=== PATIENT | female | born 1970 | race Caucasian/White ===

== ENCOUNTER 2017-02-03 15:05 | Emergency (ER) | payer BC ==
[~2017-02-03] VITALS: Ht 175.3 cm; Wt 55.8 kg
[~2017-02-03 15:05] MED LIST: ALPR0.5T PO; ASCO1TAB5 PO; CETI10TA22 PO; CHOL100013 PO; DIPH25CA58 PO; FLUT9.9S NS; HYDR-2758 PO; MELO15TA23 PO; OMEP20CA9 PO; ONDA4TAB7 PO; PHEN60TA PO; PROAIR HFA8.5 GM INH; PROM25TA10 PO; SERT100T PO; SERT50TA PO; SOFO400T PO; [UNRECOGNIZED DRUG - CODE] PO
[2017-02-03 15:17] VITALS: BP 113/63
[2017-02-03] MEDS ORDERED: BUTALB/APAP/CAFEIN 50/325/40MG TABLET. PO STA (15:32)
[2017-02-03] MEDS ORDERED: IV NORMAL SALINE 1000ML BAG 1,000 ML IV SCH (15:32)
--- NOTE | 2017-02-03 15:40 | PHYS DOC ---
Past Medical History Past Medical History: Other Additional Past Medical Histor: back pain, herniated discs, floating bones, degenerative bone disease, Past Surgical History: Other Additional Past Surgical Histo: adnoids, breast augmentation, hematoma removal Alcohol Use: None Drug Use: None Adult General Chief Complaint Chief Complaint: HEADACHE HPI HPI Patient is a 46 year old female who presents with complaint of headache. The patient states that she had a myelogram done 2 days ago for evaluation of her cervical radiculopathy. Patient states shortly after the procedure she started to have what felt like a migraine headache. She was told to rest and hydrate at home and was told that the headache would likely pass on its own. Patient states however that her symptoms have worsened. The patient states that she has worsening symptoms when she tries to stand or perform normal activities such as walking. Patient denies any fevers. Patient rates her headache currently is 10 out of 10. Patient states that laying down and attempting to sleep seems to take the edge off of her headache at this time. Due to persistent symptoms the patient came to the emergency department for evaluation. Patient does note that she has sensitivity light currently and nausea with her symptoms. Review of Systems Review of Systems Constitutional: Denies fever or chills [] Eyes: Photophobia, denies change in visual acuity, redness, or eye pain [] HENT: Denies nasal congestion or sore throat [] Respiratory: Denies cough or shortness of breath [] Cardiovascular: Denies chest pain or edema[] GI: Nausea, denies abdominal pain, vomiting, bloody stools or diarrhea [] : Denies dysuria or hematuria [] Musculoskeletal: Denies back pain or joint pain [] Integument: Denies rash or skin lesions [] Neurologic: Headache, denies focal weakness or sensory changes [] Current Medications Current Medications Current Medications Medications (Trade) Dose Ordered Sig/Jojo Start Time Stop Time Status Last Admin Dose Admin Acetaminophen/ Butalbital/ Caffeine (Fioricet) 2 tab 1X STAT 02/03/17 15:32 02/03/17 15:50 DC 02/03/17 15:57 2 TAB Diphenhydramine HCl (Benadryl) 25 mg 1X ONCE 02/03/17 15:45 02/03/17 15:50 DC 02/03/17 15:56 25 MG Prochlorperazine Edisylate (Compazine) 10 mg 1X ONCE 02/03/17 15:45 02/03/17 15:50 DC 02/03/17 15:52 10 MG Sodium Chloride 1,000 ml @ 1,000 mls/hr Q1H 02/03/17 15:32 02/03/17 16:31 DC 02/03/17 15:51 1,000 MLS/HR Allergies Allergies Allergies Coded Allergies Type Severity Reaction Last Updated Verified guaifenesin Allergy Intermediate Rash 03/23/15 Yes pseudoephedrine Allergy Intermediate Rash 03/23/15 Yes Physical Exam Physical Exam Constitutional: Alert, afebrile, appears in moderate to severe discomfort. [] HENT: Normocephalic, atraumatic, bilateral external ears normal, oropharynx moist, no oral exudates, nose normal. [] Eyes: PERRLA, EOMI, conjunctiva normal, no discharge. [] Neck: Normal range of motion, no tenderness, supple, no stridor. [] Cardiovascular:Heart rate regular rhythm, no murmur [] Lungs & Thorax: Bilateral breath sounds clear to auscultation [] Abdomen: Bowel sounds normal, soft, no tenderness, no masses, no pulsatile masses. [] Skin: Warm, dry, no erythema, no rash. [] Back: No tenderness, no CVA tenderness. [] Extremities: No tenderness, no cyanosis, no clubbing, ROM intact, no edema. [] Neurologic: Alert and oriented X 3, normal motor function, normal sensory function, no focal deficits noted. [] Current Patient Data Vital Signs Vital Signs Date Time Temp Pulse Resp B/P (MAP) Pulse Ox O2 Delivery O2 Flow Rate FiO2 02/03/17 15:17 98.3 56 18 113/63 (80) 99 Room Air 98.3 Lab Values Laboratory Tests Test 02/03/17 15:47 White Blood Count 5.1 x10^3/uL (4.0-11.0) Red Blood Count 3.62 x10^6/uL (3.50-5.40) Hemoglobin 12.9 g/dL (12.0-15.5) Hematocrit 36.9 % (36.0-47.0) Mean Corpuscular Volume 102 fL (79-100) H Mean Corpuscular Hemoglobin 36 pg (25-35) H Mean Corpuscular Hemoglobin Concent 35 g/dL (31-37) Red Cell Distribution Width 13.2 % (11.5-14.5) Platelet Count 143 x10^3/uL (140-400) Neutrophils (%) (Auto) 33 % (31-73) Lymphocytes (%) (Auto) 58 % (24-48) H Monocytes (%) (Auto) 6 % (0-9) Eosinophils (%) (Auto) 2 % (0-3) Basophils (%) (Auto) 1 % (0-3) Neutrophils # (Auto) 1.7 x10^3uL (1.8-7.7) L Lymphocytes # (Auto) 2.9 x10^3/uL (1.0-4.8) Monocytes # (Auto) 0.3 x10^3/uL (0.0-1.1) Eosinophils # (Auto) 0.1 x10^3/uL (0.0-0.7) Basophils # (Auto) 0.0 x10^3/uL (0.0-0.2) Sodium Level 141 mmol/L (136-145) Potassium Level 3.6 mmol/L (3.5-5.1) Chloride Level 103 mmol/L (98-107) Carbon Dioxide Level 29 mmol/L (21-32) Anion Gap 9 (6-14) Blood Urea Nitrogen 11 mg/dL (7-20) Creatinine 0.8 mg/dL (0.6-1.0) Estimated GFR (Cockcroft-Gault) 76.9 Glucose Level 82 mg/dL (70-99) Calcium Level 8.4 mg/dL (8.5-10.1) L Magnesium Level 2.0 mg/dL (1.8-2.4) Laboratory Tests 02/03/17 15:47 Laboratory Tests 02/03/17 15:47 EKG EKG Not performed[] Radiology/Procedures Radiology/Procedures Not performed[] Course & Med Decision Making Course & Med Decision Making Pertinent Labs and Imaging studies reviewed. (See chart for details) The patient was given IV fluids, Fioricet, Compazine, and Benadryl in the emergency department. On reevaluation, patient states that her headache has resolved at this time and patient is feeling better. 2 plan for possible recurrence, I did consult Dr. Moore of anesthesiology. He stated that if the patient was feeling better it would be reasonable to continue with outpatient treatment with Fioricet. He recommended that the patient has recurrence of symptoms that she come back to the emergency department for consideration for treatment with blood patch. This was communicated to the patient. Advised follow -up with primary doctor in 2-3 days for reevaluation and return to emergency department for any worsening symptoms. Patient voiced understanding and in agreement with treatment plan. Dragon Disclaimer Dragon Disclaimer This electronic medical record was generated, in whole or in part, using a voice recognition dictation system. Departure Departure Impression: Primary Impression: Spinal headache Disposition: HOME, SELF-CARE Condition: IMPROVED Referrals: RENETTA SIEGEL DO (PCP) Patient Instructions: Spinal Headache Additional Instructions: Follow-up to primary doctor in 2-3 days for reevaluation. Return to the emergency department for any worsening symptoms. Scripts Butalb/Acetaminophen/Caffeine ([id number] 50-325-40) 1 Each Tablet 1 EACH PO Q4-6HRS Y for HEADACHE, #30 TAB Prov: YUNIOR GARCIA MD 02/03/17 YUNIOR GARCIA MD Feb 03, 2017 15:39
[2017-02-03] MEDS ORDERED: diphenhydrAMINE 50 MG/ML VIAL IVP ONE (15:45)
[2017-02-03] MEDS ORDERED: PROCHLORPERAZINE 10 MG/2 ML VIAL. IV ONE (15:45)
[2017-02-03 16:11] LABS: BASO % 1 % (0-3); EOS % 2 % (0-3); HEMATOCRIT 36.9 % (36.0-47.0); HEMOGLOBIN 12.9 g/dL (12.0-15.5); LYMPH # 2.9 x10^3/uL (1.0-4.8); LYMPH % 58 % (24-48); MEAN CORPUSCULAR HEMOGLOBIN 36 pg (25-35); MEAN CORPUSCULAR HGB CONC 35 g/dL (31-37); MEAN CORPUSCULAR VOLUME 102 fL (79-100); MONO % 6 % (0-9); NEUT % 33 % (31-73); PLATELET COUNT 143 x10^3/uL (140-400); RED BLOOD COUNT 3.62 x10^6/uL (3.50-5.40); RED CELL DISTRIBUTION WIDTH 13.2 % (11.5-14.5); WHITE BLOOD COUNT 5.1 x10^3/uL (4.0-11.0)
[2017-02-03 16:27] LABS: CALCIUM 8.4 mg/dL (8.5-10.1); CREATININE 0.8 mg/dL (0.6-1.0); GFR 76.9; POTASSIUM 3.6 mmol/L (3.5-5.1)
[2017-02-03] MEDS ORDERED: BUTA1TAB23 PO (17:33)
== END 2017-02-03 17:49 | disposition home or self-care (01) ==
LOC: ER 15:05
DX: T88.59XA Other complications of anesthesia, initial encounter (principal); G44.40 Drug-induced headache, not elsewhere classified, not intractable; Z88.8 Allergy status to other drugs, medicaments and biological substances
CPT/HCPCS: 36415; 80048; 83735; 85025; 96361; 96374; 96375; 99284; J0780; J1200; J7030

== ENCOUNTER 2018-07-03 22:20 | Emergency (ER) | payer BC, OTHER ==
[~2018-07-03] VITALS: Ht 175.3 cm; Wt 59.0 kg
[~2018-07-03 22:20] MED LIST changes: +ALBU2.5V8 INH; +BUTA1TAB23 PO; -HYDR-2758 PO; +HYDR-2761 PO; +HYDR-3164 PO; +OMEP20CA10 PO; -OMEP20CA9 PO; -PROAIR HFA8.5 GM INH
[2018-07-04] MEDS ORDERED: methylPREDNISolone SOD SUCC PF 125 MG/2 ML VIAL. IM ONE (00:30)
[2018-07-04] MEDS ORDERED: KETOROLAC 60 MG/2 ML VIAL. IM ONE (00:30)
[2018-07-04] MEDS ORDERED: ONDANSETRON ODT 4 MG TAB.RAPDIS. PO ONE (00:30)
[2018-07-04 00:31] LABS: BARBITURATES POS (NEG); BENZODIAZEPINES POS (NEG); CANNABINOIDS POS (NEG); COCAINE NEG (NEG); METHADONE NEG (NEG); OPIATES NEG (NEG); PHENCYCLIDINE NEG (NEG)
[2018-07-04 00:32] LABS: AMPHETAMINE/METHAMPHETAMINE NEG (NEG)
[2018-07-04] MEDS ORDERED: PRED50TA PO (00:38)
[2018-07-04] MEDS ORDERED: DICL50TA4 PO (00:38)
[2018-07-04] MEDS ORDERED: CYCL10TA2 PO (00:38)
--- NOTE | 2018-07-04 00:39 | PHYS DOC ---
Past Medical History Past Medical History: Migraines, Other Additional Past Medical Histor: back pain, herniated discs, floating bones, degenerative bone disease,HEP-C Past Surgical History: Other Additional Past Surgical Histo: adnoids, breast augmentation, hematoma removal Alcohol Use: None Drug Use: Marijuana Adult General Chief Complaint Chief Complaint: HEADACHE HPI HPI Patient is a 48 year old female with history of migraine headaches who presents to the ED today complaining of 6 out of 10 posterior headache consistent with her migraines that began 2 days ago and has been going on intermittently since then. Patient is also complaining of an episode of vomiting today. She states she was at work today and the headache was unbearable so she left work and came to the ED to be evaluated. Patient denies this being the worst headache in her life. Denies any fever, neck pain, chest pain or shortness of breath. She states she used to be a smoker, she stopped smoking then resumed smoking in the last couple days. Review of Systems Review of Systems Constitutional: Denies fever or chills [] Eyes: Denies change in visual acuity, redness, or eye pain [] HENT: Denies nasal congestion or sore throat [] Respiratory: Denies cough or shortness of breath [] Cardiovascular: No additional information not addressed in HPI [] GI: Reports vomiting. Denies abdominal pain, bloody stools or diarrhea [] : Denies dysuria or hematuria [] Musculoskeletal: Denies back pain or joint pain [] Integument: Denies rash or skin lesions [] Neurologic: Reports migraine headache, denies focal weakness or sensory changes [] All other systems were reviewed and found to be within normal limits, except as documented in this note. Current Medications Current Medications Current Medications Medications (Trade) Dose Ordered Sig/Jojo Start Time Stop Time Status Last Admin Dose Admin Ketorolac Tromethamine (Toradol Im) 60 mg 1X ONCE 07/04/18 00:30 07/04/18 00:31 DC Methylprednisolone Sodium Succinate (SOLU-Medrol 125MG VIAL) 125 mg 1X ONCE 07/04/18 00:30 07/04/18 00:31 DC Ondansetron HCl (Zofran Odt) 4 mg 1X ONCE 07/04/18 00:30 07/04/18 00:31 DC Allergies Allergies Allergies Coded Allergies Type Severity Reaction Last Updated Verified guaifenesin Allergy Intermediate Rash 03/23/15 Yes pseudoephedrine Allergy Intermediate Rash 03/23/15 Yes Physical Exam Physical Exam Constitutional: Well developed, well nourished, no acute distress, non-toxic appearance. [] HENT: Normocephalic, atraumatic, bilateral external ears normal, oropharynx moist, no oral exudates, nose normal. [] Eyes: PERRLA, EOMI, conjunctiva normal, no discharge. [] Neck: Normal range of motion, no tenderness, supple, no stridor. [] Cardiovascular:Heart rate regular rhythm, no murmur [] Lungs & Thorax: Bilateral breath sounds clear to auscultation [] Abdomen: Bowel sounds normal, soft, no tenderness, no masses, no pulsatile masses. [] Skin: Warm, dry, no erythema, no rash. [] Back: No tenderness, no CVA tenderness. [] Extremities: No tenderness, no cyanosis, no clubbing, ROM intact, no edema. [] Neurologic: Alert and oriented X 3, normal motor function, normal sensory function, no focal deficits noted. Cranial nerves II through XII intact Psychologic: Affect normal, judgement normal, mood normal. [] Current Patient Data Vital Signs Vital Signs Date Time Temp Pulse Resp B/P (MAP) Pulse Ox O2 Delivery O2 Flow Rate FiO2 07/03/18 23:16 97.9 66 16 95/57 (70) 96 Room Air 97.9 Lab Values Laboratory Tests Test 07/04/18 00:01 Urine Opiates Screen Neg (NEG) Urine Methadone Screen Neg (NEG) Urine Barbiturates Pos (NEG) Urine Phencyclidine Screen Neg (NEG) Urine Amphetamine/Methamphetamine Neg (NEG) Urine Benzodiazepines Screen Pos (NEG) Urine Cocaine Screen Neg (NEG) Urine Cannabinoids Screen Pos (NEG) Urine Ethyl Alcohol Neg (NEG) EKG EKG [] Radiology/Procedures Radiology/Procedures [] Course & Med Decision Making Course & Med Decision Making Pertinent Labs and Imaging studies reviewed. (See chart for details) This is a 48-year-old female patient presenting to the ED today with exacerbation of her migraine headache. Has history of migraine headaches. She is given Toradol, Solu-Medrol, and Zofran. Discharge to home. Follow-up with primary care doctor in the course of next week. Encourage to consider smoking cessation. Dragon Disclaimer Dragon Disclaimer This electronic medical record was generated, in whole or in part, using a voice recognition dictation system. Departure Departure Impression: Primary Impression: Smoking addiction Additional Impression: Migraine headache Disposition: 01 HOME, SELF-CARE Condition: STABLE Referrals: RENETTA SIEGEL DO (PCP) follow up next week Patient Instructions: Migraine Headache, Smoking Cessation Additional Instructions: You were evaluated in the emergency room for a migraine headache. Consider smoking cessation. Follow-up with your doctor next week. Scripts Diclofenac Sodium (DICLOFENAC SODIUM) 50 Mg Tablet.dr 1 TAB PO BID, #20 TAB 0 Refills Prov: TESS HICKS APRN 07/04/18 Prednisone (PREDNISONE) 50 Mg Tablet 1 TAB PO DAILY, #5 TAB Prov: TESS HICKS APRN 07/04/18 Cyclobenzaprine Hcl (CYCLOBENZAPRINE HCL) 10 Mg Tablet 1 TAB PO TID, #30 TAB Prov: TSES HICKS APRN 07/04/18 Problem Qualifiers Additional Impression: Migraine headache Migraine type: unspecified Status migrainosus presence: without status migrainosus Intractability: not intractable Qualified Codes: G43.909 - Migraine, unspecified, not intractable, without status migrainosus TESS HICKS APRN Jul 04, 2018 00:38
[2018-07-04 01:00] VITALS: BP 122/73
== END 2018-07-04 01:15 | disposition home or self-care (01) ==
LOC: ER 22:20
DX: G43.909 Migraine, unspecified, not intractable, without status migrainosus (principal); F17.200 Nicotine dependence, unspecified, uncomplicated
CPT/HCPCS: 80307; 96372; 99283; J1885; J2930; Q0162